=== PATIENT | female | born 1945 | race Caucasian/White ===

== ENCOUNTER 2020-01-24 18:09 | Emergency (ER) | payer MEDICARE, OTHER ==
[2020-01-24] MEDS ORDERED: fentaNYL 100 MCG/2 ML SDV IVPUSH ONE (18:29)
[2020-01-24] MEDS ORDERED: Ketorolac 30 MG/ML SDV IVPUSH ONE (18:29)
--- NOTE | 2020-01-24 18:41 | EDM.PDOC ---
ED HPI GENERAL MEDICAL PROBLEM - General Chief Complaint: Back Pain or Injury Stated Complaint: SHORTNESS OF BREATH, NAUSEA Time Seen by Provider: 01/24/20 18:22 Source of Information: Reports: Patient, Family, RN Notes Reviewed History Limitations: Reports: No Limitations - History of Present Illness INITIAL COMMENTS - FREE TEXT/NARRATIVE: 74-year-old female presents emergency department today with complaints of low back pain, she injured herself at home when she slipped and fell landed on her back she has pain predominantly in the right lumbar area. She is nauseated from the pain she has no loss of bowel or bladder Right Back Pain Score (Numeric/FACES): 8 - Related Data Allergies Allergy/AdvReac Type Severity Reaction Status Date / Time No Known Allergies Allergy Verified 01/24/20 18:13 Home Meds: Home Meds NK [No Known Home Meds] 01/24/20 [History] Past Medical History HEENT History: Reports: Impaired Vision [employer] History: Reports: - Past Surgical History Head Surgeries/Procedures: Reports: None HEENT Surgical History: Reports: None GI Surgical History: Reports: Appendectomy Musculoskeletal Surgical History: Reports: Other (See Below) Other Musculoskeletal Surgeries/Procedures:: 1998 knee surgery Dermatological Surgical History: Reports: None Social & Family History - Tobacco Use Smoking Status *Q: Never Smoker Second Hand Smoke Exposure: No - Caffeine Use Caffeine Use: Reports: Other - Recreational Drug Use Recreational Drug Use: No ED ROS GENERAL - Review of Systems Review Of Systems: See Below Respiratory: Reports: No Symptoms Cardiovascular: Reports: No Symptoms GI/Abdominal: Reports: No Symptoms Musculoskeletal: Reports: Neck Pain Neurological: Reports: No Symptoms ED EXAM,LOWER BACK PAIN/INJURY - Physical Exam Exam: See Below Exam Limited By: No Limitations General Appearance: Alert, Mild Distress Respiratory/Chest: No Respiratory Distress Back Exam: Normal Inspection, Decreased Range of Motion, Muscle Spasm, Paraspinal Tenderness. No: CVA Tenderness (R), CVA Tenderness (L), Vertebral Tenderness Course - Vital Signs Last Recorded V/S: Last Vital Signs Temp 97.3 F 01/24/20 18:15 Pulse 71 01/24/20 20:41 Resp 16 01/24/20 18:37 BP 137/70 01/24/20 20:41 Pulse Ox 97 01/24/20 20:41 - Orders/Labs/Meds Orders: Active Orders 24 hr Category Date Time Status Lumbar Spine 2 or 3V [CR] Stat Exams 01/24/20 18:31 Taken Meds: Medications Discontinued Medications Generic Name Dose Route Start Last Admin Trade Name Isabel PRN Reason Stop Dose Admin Cyclobenzaprine HCl 10 mg 01/24/20 19:21 01/24/20 19:34 Flexeril PO 01/24/20 19:22 10 mg ONETIME ONE Administration Fentanyl 50 mcg 01/24/20 18:29 01/24/20 18:34 Sublimaze IVPUSH 01/24/20 18:30 50 mcg ONETIME ONE Administration Ketorolac Tromethamine 30 mg 01/24/20 18:29 01/24/20 19:54 Toradol IVPUSH 01/24/20 18:30 30 mg ONETIME ONE Administration Departure - Departure Time of Disposition: 20:55 Disposition: Home, Self-Care 01 Condition: Fair Clinical Impression: Low back pain Qualifiers: Chronicity: acute Back pain laterality: right Sciatica presence: without sciatica Qualified Code(s): M54.5 - Low back pain - Discharge Information Instructions: Acute Back Pain, Adult, Muscle Strain, [id number] Referrals: PCP,None [Primary Care Provider] - Forms: ED Department Discharge Additional Instructions: Continue to use Tylenol as needed for pain control use of Flexeril as needed for muscle relaxants, please followup with your primary care provider in 3-5 days if not better, please call return to the emergency department with worsening of symptoms. Sepsis Event Note (ED) - Evaluation Sepsis Screening Result: No Definite Risk - Focused Exam Vital Signs: Vital Signs Temp Pulse Resp BP Pulse Ox 01/24/20 20:41 71 137/70 97 01/24/20 20:00 70 139/73 99 01/24/20 19:34 63 126/64 99 01/24/20 18:37 64 16 143/72 H 100 01/24/20 18:15 97.3 F 62 17 151/64 H 99 01/24/20 18:13 97.3 F 62 17 151/64 H 99 - My Orders Last 24 Hours: My Active Orders 01/24/20 18:31 Lumbar Spine 2 or 3V [CR] Stat - Assessment/Plan Last 24 Hours: My Active Orders 01/24/20 18:31 Lumbar Spine 2 or 3V [CR] Stat Plan: Assessment Acuity = acute Site and laterality = low back pain with muscle spasm Etiology = secondary to trauma Manifestations = none Location of injury = Home Lab values = back films I did review films myself I cannot appreciate any acute process, the official read from radiology is pending Plan = she had good relief combination Flexeril and Toradol discharged home with Flexeril 10 mg 1 tab p.o. 3 times daily PRN total #30 follow-up primary care 3 to 5 days if not better This note was dictated using [employer] recognition software please call with any questions on syntax or grammar.
[2020-01-24] MEDS ORDERED: Cyclobenzaprine 10 MG Tab PO ONE (19:21)
--- NOTE | 2020-01-25 09:12 | CR ---
Lumbar Spine 2 or 3V CLINICAL HISTORY: Fall, back pain FINDINGS: The vertebral body heights are maintained. There is disc space narrowing at L5-S1. There is a mild levoscoliosis. Bones are osteopenic. There is moderate overlying stool which obscures some detail the lumbosacral junction. Alignment is maintained IMPRESSION: Bones are osteopenic. Disc space narrowing L5-S1 Levoscoliosis No fracture or subluxation
== END 2020-01-24 21:15 | disposition home or self-care (01) ==
LOC: JP.ED 18:09
DX: M54.5 Low back pain (principal)
CPT/HCPCS: 72100; 96374; 96375; 99283; A9270; J1885; J3010; 99284